=== PATIENT | female | born 1970 | race Caucasian/White ===

== ENCOUNTER 2019-05-25 08:13 | Outpatient (CLI) | payer OTHER | END 2019-05-25 23:59 | disposition home or self-care (01) | LOC: CFH 08:13 | PROVIDERS: ATTEND Nurse Practitioner Primary Care | DX: R92.2 Inconclusive mammogram (principal); E03.9 Hypothyroidism, unspecified; I10 Essential (primary) hypertension; E78.2 Mixed hyperlipidemia | CPT/HCPCS: 76536; 76641 ==

== ENCOUNTER → 2020-06-07 | Outpatient (CLI) | payer BC | END | disposition home or self-care (01) | LOC: RAD 13:25 | PROVIDERS: ATTEND Family Medicine | DX: N20.0 Calculus of kidney (principal); N13.30 Unspecified hydronephrosis; R31.9 Hematuria, unspecified | CPT/HCPCS: 74176 ==

== ENCOUNTER 2020-07-26 21:18 | Observation (INO) | payer BC ==
[~2020-07-26] VITALS: Ht 172.7 cm; Wt 69.5 kg
--- NOTE | 2020-07-26 21:42 | NUR ---
THIS IS A 50Y F THAT COMES IN FOR RLQ PAIN THAT BEGAN TODAY AND HAS BEEN WORSENING. PT STS DX WITH KIDNEY STONE ABOUT 45DAYS AGO. PT STS THIS PAIN IS DIFFERENT FROM THAT IN THAT WHEN SHE VOMITS IT DOES NOT IMPROVE. PT CONNECTED TO MONITORING ERP AT BEDSIDE FOR EVAL AT THIS TIME
[2020-07-26] MEDS ORDERED: ONDANSETRON 2MG/ML, 2ML ONE (21:50)
[2020-07-26] MEDS ORDERED: MORPHINE SULFATE 4 MG/ML, 1ML ONE ×2 (21:50→22:41)
[2020-07-26] MEDS: MORPHINE SULFATE 4 MG/ML, 1ML IVPush PRN ×2 (21:54→22:46)
[2020-07-26] MEDS ORDERED: ONDANSETRON 2MG/ML, 2ML IVPush ONE (22:00)
[2020-07-26 22:07] LABS: MEAN CORPUSCULAR HEMOGLOBIN 30.7 pg (27.0-34.8); MEAN CORPUSCULAR HGB CONC 32.6 g/dL (32.4-35.8); MEAN CORPUSCULAR VOLUME 94.2 fL (80-100); PLATELET COUNT 308 x10^3/uL (130-400); RED BLOOD COUNT 4.95 x10^6/uL (3.82-5.3); RED CELL DISTRIBUTION WIDTH 12.6 % (9.6-15.2)
[2020-07-26 22:11] LABS: MICROSCOPIC AUTO
--- NOTE | 2020-07-26 22:30 | NUR ---
PT REQ WATER, PT EDUCATED ON NPO UNTIL FURTHER NOTICE
[2020-07-26 22:31] LABS: MD YES
[2020-07-26 22:35] LABS: BAND#(MANUAL) 0.96 x10^3/uL; BANDS%(MANUAL) 5 % (0-7); LYMPH#(MANUAL) 2.67 x10^3/uL (1-3.4); LYMPHS% (MANUAL) 14 % (22-44); REACTIVE LYMPHS # (MANUAL) 0.96 x10^3/uL (0-0); REACTIVE LYMPHS % (MANUAL) 5 % (0-0); SEG#(MANUAL) 14.52 x10^3/uL (1.8-6.8); SEGS% (MANUAL) 76 % (42-75)
[2020-07-26 22:37] LABS: <PLATELET ESTIMATE> ADEQUATE; <RBC MORPHOLOGY> NORMAL; LARGE PLATELETS 1+
[2020-07-26 22:46] LABS: ALBUMIN 4.4 g/dL (3.4-5.0); ANION GAP 13 mmol/L (5-15); CALCIUM 9.7 mg/dL (8.5-10.1); CHLORIDE 103 mmol/L (98-107)
--- NOTE | 2020-07-26 22:47 | NUR ---
PT MEDICATED FOR PAIN AT THIS TIME AWAITING CT
[2020-07-26 22:51] LABS: ALANINE AMINOTRANSFERASE 34 U/L (12-78); ALKALINE PHOSPHATASE 84 U/L (45-117); CREATININE 0.72 mg/dL (0.55-1.02); TOTAL PROTEIN 8.7 g/dL (6.4-8.2)
[2020-07-26] MEDS ORDERED: HYDROmorphone 2 MG/ML, 1ML ONE (22:55)
[2020-07-26 22:59] LABS: BILIRUBIN,TOTAL 0.9 mg/dL (0.2-1.0)
[2020-07-26] MEDS ORDERED: HYDROmorphone 1 MG/ML, 1ML INJ IVPush ONE (23:00)
--- NOTE | 2020-07-26 23:01 | NUR ---
PT C/O PAIN NOT IMPROVING WITH MORPHINE, UPDATED ADDITIONAL ORDERS, PT MEDICATED PER JAN 11 RIGHTS VERIFIED.
--- NOTE | 2020-07-26 23:11 | NUR ---
CT CALLED TO FOLLOW UP STS PT IS NEXT
[2020-07-26] MEDS ORDERED: OMNIPAQUE 350 MG/ML, 100ML BOTTLE ONE (23:32)
--- NOTE | 2020-07-26 23:38 | NUR ---
PT BACK FROM CT
[2020-07-27] MEDS ORDERED: CEFOTETAN PMX 1GM/50ML 50 ML IV ONE
[2020-07-27] MEDS ORDERED: CEFOTETAN PMX 1GM/50ML 50 ML ONE (00:08)
--- NOTE | 2020-07-27 00:12 | NUR ---
PER DR. MIMS NO CULTURES TO BE DRAWN PRIOR TO ABX START
[2020-07-27] MEDS ORDERED: LEVO125T PO (00:15)
[2020-07-27] MEDS ORDERED: MELO7.5T31 PO (00:17)
[2020-07-27] MEDS ORDERED: SODIUM CHLORIDE 0.9% 1,000 ML IV ONE (00:21)
--- NOTE | 2020-07-27 00:23 | NUR ---
ABX STARTED INFUSING WITHOUT DIFFICULTY. PT REQ ADDITIONAL PAIN MEDS ERP TO BE UPDATED
[2020-07-27] MEDS ORDERED: HYDROmorphone 1 MG/ML, 1ML INJ ONE (00:29)
[2020-07-27] MEDS ORDERED: ONDANSETRON 2MG/ML, 2ML IVPush PRN ×2 (00:30→08:00)
[2020-07-27] MEDS: HYDROmorphone 1 MG/ML, 1ML INJ IVPush PRN ×2 (00:31→04:15)
--- NOTE | 2020-07-27 01:09 | NUR ---
REPORT TO INES ARNDT PT CARE TRANSFERED AT THIS TIME
--- NOTE | 2020-07-27 01:40 | NUR ---
Report given to Floor RN.
[2020-07-27] MEDS ORDERED: LOSARTAN PO (01:50)
[2020-07-27] MEDS ORDERED: HYDR12.517 PO (01:50)
[2020-07-27 02:08] VITALS: BP 135/87
[2020-07-27] MEDS ORDERED: BUPIVACAINE/EPI 0.5% 1:200K ONE (06:12)
[2020-07-27] MEDS ORDERED: FENTANYL PF 250 MCG/5ML ONE (06:40)
[2020-07-27] MEDS ORDERED: MIDAZOLAM 1 MG/ML, 2ML ONE (06:40)
[2020-07-27] MEDS ORDERED: ONDANSETRON 2MG/ML, 2ML ONE (06:53)
[2020-07-27] MEDS ORDERED: PROPOFOL 10 MG/ML, 20ML ONE (06:53)
[2020-07-27] MEDS ORDERED: ROCURONIUM 10 MG/ML,10ML ONE (06:53)
[2020-07-27] MEDS ORDERED: SUCCINYLCHOLINE 20 MG/ML, 10ML ONE (06:53)
[2020-07-27] MEDS ORDERED: ESMOLOL 100 MG/10 ML ONE (06:53)
[2020-07-27] MEDS ORDERED: GLYCOPYRROLATE 0.2MG/1ML, 5ML ONE (06:53)
[2020-07-27] MEDS ORDERED: NEOSTIGMINE 1 MG/ML, 10ML ONE (06:53)
[2020-07-27] MEDS ORDERED: CHLORHEXIDINE 15 ML UDC MM ONE (07:00)
[2020-07-27] MEDS ORDERED: FENTANYL PF 100 MCG/2ML ONE (07:26)
[2020-07-27] MEDS ORDERED: KETOROLAC 30 MG/1 ML ONE (07:51)
[2020-07-27] MEDS ORDERED: PROMETHAZINE 25 MG/ML, 1ML IVPush PRN (08:00)
[2020-07-27] MEDS ORDERED: PROMETHAZINE 12.5 MG SUPP PR PRN (08:00)
[2020-07-27] MEDS ORDERED: LABETALOL 5MG/ML, 20ML IV PRN (08:00)
[2020-07-27] MEDS ORDERED: KETOROLAC 30 MG/1 ML IV PRN (08:00)
[2020-07-27] MEDS ORDERED: OXYcodone 5 MG/5 ML ORAL.SOL UDC PO PRN (08:00)
[2020-07-27] MEDS ORDERED: morphine SULFATE 10 MG/ML, 1ML IVPush PRN (08:00)
[2020-07-27] MEDS ORDERED: KETOROLAC 30 MG/1 ML IVPush PRN (08:00)
[2020-07-27] MEDS ORDERED: hydrALAzine 20 MG/ML, 1ML IV PRN (08:00)
[2020-07-27] MEDS ORDERED: FENTANYL PF 100 MCG/2ML IV PRN (08:00)
[2020-07-27] MEDS ORDERED: METHOCARBAMOL 1,000 MG in DEXTROSE 5% 100 ML IV PRN (08:00)
[2020-07-27] MEDS ORDERED: MEPERIDINE/PF 25MG/0.5ML IVPush PRN (08:00)
[2020-07-27] MEDS ORDERED: HYDROcodone/APAP 5/325 TABLET PO PRN (08:00)
[2020-07-27] MEDS ORDERED: ACETAMINOPHEN 325 MG TABLET PO PRN (08:00)
[2020-07-27] MEDS ORDERED: HYDROmorphone 1 MG/ML, 1ML INJ IVPush PRN (08:00)
[2020-07-27] MEDS ORDERED: AMOX1TAB64 PO (10:56)
[2020-07-27] MEDS ORDERED: HYDR-3240 PO (10:58)
[2020-07-27] MEDS ORDERED: ONDA4TAB13 SL (11:00)
[2020-07-27 13:52] VITALS: BP 131/64
[2020-07-28] MEDS ORDERED: ENOXAPARIN 40 MG/0.4 ML SQ SCH (08:00)
== END 2020-07-27 13:55 | disposition home or self-care (01) ==
LOC: ED 23:22 → EDIP 07-27 00:28 → INTOOBSV 07-27 00:28 → 4NE 07-27 02:01 → DCLOUNGE 07-27 13:42
PROVIDERS: ADMIT Surgery; ATTEND Surgery
DX: K35.30 Acute appendicitis with localized peritonitis, without perforation or gangrene (principal); Z20.828 Contact with and (suspected) exposure to other viral communicable diseases; I10 Essential (primary) hypertension; E78.5 Hyperlipidemia, unspecified; E03.9 Hypothyroidism, unspecified; N73.6 Female pelvic peritoneal adhesions (postinfective)
CPT/HCPCS: 36415; 44970; 74177; 80053; 81001; 83690; 84703; 85025; 87086; 87635; 88304; 96365; 96375; 96376; 99285; G0378; J0330; J1170; J1885; J2250; J2270; J2405; J2704; J2710; J3010; J3490; Q9967